=== PATIENT | female | born 2000 | race Caucasian/White ===

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

== ENCOUNTER 2020-10-10 09:44 | Emergency (ER) | payer OTHER ==
[~2020-10-10] VITALS: Ht 162.6 cm; Wt 65.0 kg
[2020-10-10] MEDS ORDERED: ONDANSETRON HCL 4MG/2ML INJ IV STA (10:19)
[2020-10-10] MEDS ORDERED: SODIUM CHLORIDE 0.9% 1,000 ML IV ONE (10:30)
[2020-10-10 10:41] LABS: CHLORIDE 106 mEq/L (98-107)
[2020-10-10 10:47] VITALS: BP 122/60
[2020-10-10 11:12] LABS: B-HCG QUANTITATIVE 52929 mIU/mL (<3)
[2020-10-10 11:32] LABS: BASOPHILS % 0.4 % (0.0-2.0); EOSINOPHILS % 0.1 % (0.0-5.0); HEMATOCRIT. 40.5 % (36.0-48.0); HEMOGLOBIN. 14.7 g/dL (12.0-16.0); LYMPHOCYTES % 18.3 % (20.0-50.0); MEAN CORPUSCULAR HEMOGLOBIN 31.9 pg (28.0-32.0); MEAN CORPUSCULAR VOLUME 87.9 fL (81.0-99.0); MEAN PLATELET VOLUME 9.6 fl (7.4-10.4); MONOCYTES % 5.9 % (2.0-8.0); NEUTROPHILS % 75.3 % (40.0-76.0); PLATELET 243 x1000/uL (130-400); RED BLOOD CELL COUNT 4.61 mill/uL (4.2-5.4); RED CELL DISTRIBUTION WIDTH 13.6 % (11.6-14.6)
[2020-10-10] MEDS ORDERED: ONDA4TAB5 MT (16:28)
[2020-10-10] MEDS ORDERED: ONDANSETRON 4MG ODT PO ONE (16:30)
[2020-10-10 17:08] LABS: CLARITY URINE CLEAR (CLEAR); COLOR URINE YELLOW (YELLOW); KETONES URINE 3+ (NEGATIVE); LEUKOCYTE ESTERASE URINE NEGATIVE (NEGATIVE); NITRITE URINE NEGATIVE (NEGATIVE); OCCULT BLOOD URINE NEGATIVE (NEGATIVE); PH URINE 5.5 (4.5-8.0); PROTEIN URINE NEGATIVE (NEGATIVE); SPECIFIC GRAVITY URINE 1.026 (1.005-1.030); UROBILINOGEN URINE 0.2 E.U./dL (0.2-1.0)
== END 2020-10-10 17:01 | disposition home or self-care (01) ==
LOC: ER 09:44
DX: O23.41 Unspecified infection of urinary tract in pregnancy, first trimester (principal); O21.0 Mild hyperemesis gravidarum; Z3A.01 Less than 8 weeks gestation of pregnancy
CPT/HCPCS: 36415; 76705; 76801; 76817; 80053; 81003; 83690; 84702; 85025; 93005; 96361; 96374; 99285; J2405; J7030

== ENCOUNTER 2021-05-22 10:32 | Observation (INO) | payer OTHER ==
[~2021-05-22] VITALS: Ht 157.5 cm; Wt 90.7 kg
[~2021-05-22 10:32] MED LIST: ONDA4TAB5 MT
[2021-05-22] MEDS ORDERED: PNV1TABL76 MT (13:44)
== END 2021-05-22 13:55 | disposition home or self-care (01) ==
LOC: 8 EST LDRP 10:32
PROVIDERS: ADMIT Obstetrics & Gynecology; ATTEND Obstetrics & Gynecology
DX: O26.893 Other specified pregnancy related conditions, third trimester (principal); N89.8 Other specified noninflammatory disorders of vagina; O36.8130 Decreased fetal movements, third trimester, not applicable or unspecified; Z3A.38 38 weeks gestation of pregnancy
CPT/HCPCS: 76805; 76818; G0378; 59025